=== PATIENT | male | born 1980 | race Two or more races ===

== ENCOUNTER 2024-09-10 00:33 | Inpatient (IN) | payer OTHER ==
[2024-09-10 00:58] VITALS: BMI 25.7
[2024-09-10 03:33] LABS: BASO % 0.6 % (0-2.0); EOS % 3.8 % (0-4.5); HEMATOCRIT 36.1 % (35.4-49); HEMOGLOBIN 11.9 GM/dL (11.7-16.9); LYMPH % 23.4 % (8-40); MCH 26.1 pg (25.7-33.7); MEAN CELL VOLUME 79.1 fl (80-96); MEAN PLT VOLUME 7.2 fl (7.5-11.1); MONO % 7.6 % (3.8-10.2); NEUT % 64.6 % (42.8-82.8); PLATELET COUNT 422 10^3/uL (134-434); RBC 4.57 M/mm3 (4.00-5.60); RDW 15.2 % (11.9-15.9); WHITE BLOOD COUNT 6.8 K/mm3 (4.0-10.0)
[2024-09-10] MEDS ORDERED: PIPERACILLIN/TAZOB 4.5 GM 4.5 GM/100 ML BAG IVPB ONE (03:38)
[2024-09-10] MEDS: PIPERACILLIN/TAZOB 4.5 GM 4.5 GM in DEXTROSE 5%-WATER 100 ML IVPB ONE (03:43)
[2024-09-10] MEDS ORDERED: VANCOMYCIN 1 GM PREMIX (F) 1 GM/200 ML BAG ONE (04:10)
[2024-09-10] MEDS: VANCOMYCIN 1,000 MG in DEXTROSE 5%-WATER - 250 ML IVPB ONE (04:19)
[2024-09-10 04:22] LABS: ERYTHROCYTE SEDIMENTATION RATE 82 mm/hr (0-10)
[2024-09-10 04:34] LABS: CALCIUM 9.3 mg/dL (8.5-10.1)
[2024-09-10 04:35] LABS: ALBUMIN 2.6 g/dl (3.4-5.0); BLOOD UREA NITROGEN 14.4 mg/dL (7-18)
[2024-09-10 04:39] LABS: BILIRUBIN,TOTAL 0.3 mg/dL (0.2-1); TOT PROT 6.9 g/dl (6.4-8.2)
[2024-09-10] MEDS ORDERED: VANCOMYCIN/WATER 1250 MG 1,250 MG/250 ML BAG IVPB SCH ×2 (10:30→16:00)
[2024-09-10] MEDS ORDERED: PIPERACILLIN/TAZOB 3.375 GM 3.375 GM in DEXTROSE 5%-WATER - 50 ML IVPB SCH (10:30)
[2024-09-10] MEDS: ENOXAPARIN NA (PORCINE) 40 MG/0.4 ML DISP.SYRIN SQ SCH (13:53)
[2024-09-10] MEDS: LACTATED RINGERS SOLUTION 1,000 ML/1,000 ML INFUS.BAG IV SCH (14:49)
[2024-09-10] MEDS: PIPERACILLIN/TAZOB 3.375 GM 50 ML IVPB SCH (14:50)
[2024-09-10] MEDS: VANCOMYCIN/WATER 1250 MG 1,250 MG/250 ML BAG IVPB SCH (15:43)
[2024-09-10] MEDS: methaDONE HCL 40 MG DISPERSABLE TABLET PO ONE (15:43)
[2024-09-10 15:46] LABS: URINE AMPHETAMINES NEGATIVE (NEGATIVE); URINE BARBITURATES NEGATIVE (NEGATIVE)
[2024-09-10 15:49] LABS: METHADONE, UR NEGATIVE (NEGATIVE); OPIATES, URI NEGATIVE (NEGATIVE); PHENCYCLIDINE,URINE NEGATIVE (NEGATIVE)
[2024-09-10 15:57] LABS: COCAINE, UR POSITIVE (NEGATIVE); URINE BENZODIAZEPINES POSITIVE (NEGATIVE)
[2024-09-11] MEDS: PIPERACILLIN/TAZOB 3.375 GM 50 ML IVPB SCH (01:07)
[2024-09-11] MEDS: VANCOMYCIN/WATER FOR INJ (PEG) 1,000 MG/200 ML BAG IVPB SCH (03:07)
[2024-09-11] MEDS: cloNIDine HCL 0.1 MG TABLET PO SCH (13:48)
[2024-09-11] MEDS: AMMONIUM LACTATE 12% LOTION 225 GM BOTTLE TP PRN (15:04)
[2024-09-12] MEDS: methaDONE 40 MG, methaDONE 10 MG PO ONE (10:04)
[2024-09-13] MEDS ORDERED: cloNIDine HCL 0.1 MG TABLET PO PRN
[2024-09-13] MEDS: methaDONE 40 MG, methaDONE 20 MG PO ONE (10:14)
[2024-09-14] MEDS: methaDONE 40 MG, methaDONE 30 MG PO ONE (10:20)
[2024-09-14 13:34] LABS: BASO % 0.8 % (0-2.0); EOS % 0.3 % (0-4.5); HEMATOCRIT 40.4 % (35.4-49); HEMOGLOBIN 13.2 GM/dL (11.7-16.9); LYMPH % 27.7 % (8-40); MCH 25.8 pg (25.7-33.7); MCHC 32.6 g/dl (32.0-35.9); MEAN CELL VOLUME 79.4 fl (80-96); MEAN PLT VOLUME 7.3 fl (7.5-11.1); MONO % 7.7 % (3.8-10.2); NEUT % 63.5 % (42.8-82.8); PLATELET COUNT 475 10^3/uL (134-434); RBC 5.09 M/mm3 (4.00-5.60); RDW 14.9 % (11.9-15.9); WHITE BLOOD COUNT 7.4 K/mm3 (4.0-10.0)
[2024-09-14 13:56] LABS: CALCIUM 9.3 mg/dL (8.5-10.1)
[2024-09-14 13:58] LABS: BLOOD UREA NITROGEN 14.3 mg/dL (7-18); MAGNESIUM 2.1 mg/dL (1.8-2.4)
[2024-09-14 14:01] LABS: CREATININE 0.9 mg/dL (0.55-1.3)
[2024-09-14 14:02] LABS: BILIRUBIN,TOTAL 0.6 mg/dL (0.2-1); TOT PROT 7.9 g/dl (6.4-8.2)
[2024-09-14 14:03] LABS: ALBUMIN 3.3 g/dl (3.4-5.0)
[2024-09-14] MEDS: ACETAMINOPHEN 325 MG TABLET (FP) PO PRN (16:52)
[2024-09-15] MEDS: methaDONE HCL 40 MG DISPERSABLE TABLET PO ONE (09:16)
[2024-09-15 14:55] VITALS: BP 126/62; PULSE 54; RESP 20; TEMP 98.1
[2024-09-16] MEDS ORDERED: methaDONE 80 MG, methaDONE 10 MG PO ONE (10:00)
== END 2024-09-15 16:15 | disposition home or self-care (01) | DRG 380 ==
LOC: JER 00:33 → JERBED 06:58 → J7W 10:50
PROVIDERS: ADMIT Internal Medicine
DX: L97.829 Non-pressure chronic ulcer of other part of left lower leg with unspecified severity (principal); L97.819 Non-pressure chronic ulcer of other part of right lower leg with unspecified severity; L97.509 Non-pressure chronic ulcer of other part of unspecified foot with unspecified severity; F11.20 Opioid dependence, uncomplicated; E11.9 Type 2 diabetes mellitus without complications; F17.210 Nicotine dependence, cigarettes, uncomplicated; L03.115 Cellulitis of right lower limb; L03.116 Cellulitis of left lower limb
CPT/HCPCS: 36415; 73590-TC-LT-FY; 73590-TC-RT-FY; 80053; 80305; 80307; 82962; 83735; 85025; 85651; 86140; 87040; 87070; 87186; 87205; 93005; 93010; 97116-GP; 97161-GP; 99285-25; G0480